=== PATIENT | male | born 1995 | race Caucasian/White ===

== ENCOUNTER 2022-12-28 05:31 | Emergency (ER) | payer OTHER, SELFPAY ==
[2022-12-28 05:53] LABS: Bacteria None Seen /HPF (None Seen); Bilirubin Negative (Negative); Blood Negative (Negative); Epithelial Cells Rare /HPF (None Seen); Glucose, Urine Negative (Negative); Hyaline Casts NONE SEEN /LPF (0-2); Ketones Negative (Negative); Leukocyte Esterase Negative (Negative); Nitrite Negative (Negative); Ph 5.5 (4.6-8.0); Protein,Urine Dip Negative (Negative); RBC 0-2 /HPF (0-5); Specific Gravity 1.025 (1.005-1.030)
[2022-12-28 05:54] LABS: ADD URINE CULTURE? NO (NO); Appearance Clear (Clear)
--- NOTE | 2022-12-28 06:03 | ERPHSYRPT ---
- History of Present Illness Source: patient Exam Limitations: no limitations Patient Subjective Stated Complaint: pt states he woke up with pain in his rt flank. states he has had kidney stones before and th is feels similar Triage Nursing Assessment: pt alert and oriented, answers questions approp. pt ambulates into room with steady gait noted. respirations nonlabored. skin warm and dry. abd soft and nontender. bowel sounds present x4. Timing/Duration: hour(s) (2) Activites at Onset: sleep Quality: sharpness, stabbing Onset Location: right flank Pain Radiation: groin Severity of Pain-Max: severe Severity of Pain-Current: severe Modifying Factors: Improves With: vomiting. Worsens With: movement, palpation, urinating, walking Associated Symptoms: abdominal pain, nausea, vomiting, lower back pain, No fever, No chills, No diaphoresis, No dysuria Prior abdominal problems: none Sexual intercourse history: non-contributory Hx Tetanus, Diphtheria Vaccination/Date Given: Yes Hx Influenza Vaccination/Date Given: Yes Hx Pneumococcal Vaccination/Date Given: No Immunizations Up to Date: Yes <SAMMY TY - Last Filed: 12/28/22 06:59> <JUAN CISSE - Last Filed: 12/28/22 07:46> - History of Present Illness Time Seen by Provider: 12/28/22 05:58 Physician History: Pt c/o flank pain, right. Severe, radiates to groin. 10 in severity Previous episode of nephrolithiasis, last episode 2019, no intervention needed No fever. + N/V. No dysuria. Denies hematuria. (SAMMY TY) Allergies/Adverse Reactions: No Known Drug Allergies Allergy (Verified 12/28/22 05:53) Home Medications: No Home Meds [No Home Meds] 1 ea UD 03/16/16 [History] Travel Risk - International Travel Have you traveled outside of the country in past 3 weeks: No - Coronavirus Screening Are you exhibiting any of the following symptoms?: No Close contact with a COVID-19 positive Pt in past 14-21 Days: No - Vaccine Status Have you recieved a Covid-19 vaccination: Yes Before School Babysitter: [employer] - Vaccination Dates Date of 2cond Vaccination (if applicable): 06/24/21 <SAMMY TY - Last Filed: 12/28/22 06:59> - Past Medical History Pertinent Past Medical History: Yes Other Medical History: kidney stones - Past Surgical History Past Surgical History: Yes Other Surgical History: TOENAIL REMOVED. LEG CAST --CHILD- external fixators - Social History Smoking Status: Never smoker Exposure to second hand smoke: No Alcohol Use: None Drug Use: none Patient Lives Alone: Yes Significant Family History: no pertinent family hx <SAMMY TY - Last Filed: 12/28/22 06:59> - Review of Systems Constitutional: No Symptoms Eyes: No Symptoms Ears, Nose, & Throat: No Symptoms Respiratory: No Symptoms Cardiac: No Symptoms Abdominal/Gastrointestinal: Abdominal Pain, Nausea, Vomiting, No Diarrhea, No Constipation Genitourinary Symptoms: Flank Pain (right), No Dysuria, No Hematuria, No Testicle Pain, No Penile Discharge Musculoskeletal: No Symptoms Skin: No Symptoms Neurological: No Symptoms Psychological: No Symptoms Endocrine: No Symptoms Hematologic/Lymphatic: No Symptoms Immunological/Allergic: No Symptoms All Other Systems: Reviewed and Negative <SAMMY TY - Last Filed: 12/28/22 06:59> - Physical Exam General Appearance: mild distress, obese Eye Exam: eyes nml inspection Ears, Nose, Throat Exam: normal ENT inspection Neck Exam: normal inspection Respiratory Exam: normal breath sounds, lungs clear, airway intact, No chest tenderness, No respiratory distress Cardiovascular Exam: normal heart sounds, tachycardia, capillary refill <2 sec Gastrointestinal/Abdomen Exam: soft, normal bowel sounds, tenderness (RLQ), No distention, No mass, No guarding, No rebound Back Exam: normal inspection, CVA tenderness (right) Extremity Exam: normal inspection, normal range of motion, No swelling, No tenderness Neurologic Exam: alert, oriented x 3, cooperative Skin Exam: normal color, warm, dry SpO2 Interpretation: normal SpO2: 99 O2 Delivery: Room Air <SAMMY TY - Last Filed: 12/28/22 06:59> - Nursing Vital Signs Nursing Vital Signs: Initial Vital Signs Temperature 98.0 F 12/28/22 05:37 Pulse Rate 101 H 12/28/22 05:37 Respiratory Rate 18 12/28/22 05:37 Blood Pressure 167/90 12/28/22 05:37 O2 Sat by Pulse Oximetry 99 12/28/22 05:37 Pain Scale Pain Intensity 5 - Course Nursing assessment & vital signs reviewed: Yes EKG Interpreted by Me: RATE (100), Sinus Tach, NORMAL AXIS, NORMAL INTERVALS, NORMAL ST-T <SAMMY TY - Last Filed: 12/28/22 06:59> Ordered Tests: Active Orders 24 hr Category Date Time Status EKG-ER Only STAT Care 12/28/22 06:07 Active IV Insertion STAT Care 12/28/22 06:07 Active ABDOMEN AND PELVIS W/0 CONTRAS [CT] Stat Exams 12/28/22 06:08 Taken CBC W DIFF Stat Lab 12/28/22 06:26 Completed CMP Stat Lab 12/28/22 06:26 Completed LIPASE Stat Lab 12/28/22 06:26 Completed Lactic Acid Stat Lab 12/28/22 06:26 Completed TROPONIN Q4H Lab 12/28/22 06:26 Completed TROPONIN Q4H Lab 12/28/22 10:15 Ordered TROPONIN Q4H Lab 12/28/22 14:15 Ordered UA W/RFX UR CULTURE Stat Lab 12/28/22 05:44 Completed Medication Summary Discontinued Medications Generic Name Dose Route Start Last Admin Trade Name Freq PRN Reason Stop Dose Admin Ketorolac Tromethamine 30 mg 12/28/22 06:25 12/28/22 06:46 Ketorolac Tromethamine 30 Mg/Ml Inj IV 12/28/22 06:26 30 mg STAT ONE Administration Ketorolac Tromethamine Confirm 12/28/22 06:27 Ketorolac Tromethamine 30 Mg/Ml Inj Administered 12/28/22 06:28 Dose 30 mg .ROUTE .STK-MED ONE Lab/Rad Data: Laboratory Result Diagrams 12/28/22 06:26 12/28/22 06:26 Laboratory Results 12/28/22 12/28/22 12/28/22 Range/Units 06:26 06:26 06:26 WBC (4.0-10.5) x10^3/uL RBC (4.1-5.6) x10^6/uL Hgb (12.5-18.0) g/dL Hct (42-50) % MCV (78-100) fL MCH (26-32) pg MCHC (32-36) g/dL RDW (11.5-14.0) % Plt Count (150-450) x10^3/uL MPV (7.5-11.0) fL Gran % (36.0-66.0) % Immature Gran % (Auto) (0.00-0.4) % Nucleat RBC Rel Count (0.00-0.1) % Eos # (Auto) (0-0.5) x10^3/uL Immature Gran # (Auto) (0.00-0.03) x10^3u/L Absolute Lymphs (auto) (1.0-4.6) x10^3/uL Absolute Monos (auto) (0.0-1.3) x10^3/uL Absolute Nucleated RBC (0.00-0.01) x10^3u/L Lymphocytes % (24.0-44.0) % Monocytes % (0.0-12.0) % Eosinophils % (0.00-5.0) % Basophils % (0.0-0.4) % Absolute Granulocytes (1.4-6.9) x10^3/uL Basophils # (0-0.4) x10^3/uL Sodium 141 (137-145) mmol/L Potassium 4.4 (3.5-5.1) mmol/L Chloride 104 (98-107) mmol/L Carbon Dioxide 29 (22-30) mmol/L Anion Gap 12.2 (5-15) MEQ/L BUN 16 (9-20) mg/dL Creatinine 0.97 (0.66-1.25) mg/dL Estimated GFR > 60.0 ML/MIN Glucose 120 H (74-106) mg/dL Lactic Acid 1.7 (0.4-2.0) Calcium 9.1 (8.4-10.2) mg/dL Total Bilirubin 0.90 (0.2-1.3) mg/dL AST 33 (17-59) U/L ALT 35 (0-50) U/L Alkaline Phosphatase 84 (38-126) U/L Troponin I < 0.012 (0.000-0.034) ng/mL Serum Total Protein 7.9 (6.3-8.2) g/dL Albumin 4.5 (3.5-5.0) g/dL Lipase 69 (23-300) U/L Urine Color (Yellow) Urine Appearance (Clear) Urine pH (4.6-8.0) Ur Specific [place] (1.005-1.030) Urine Protein (Negative) Urine Glucose (UA) (Negative) mg/dL Urine Ketones (Negative) Urine Blood (Negative) Urine Nitrite (Negative) Urine Bilirubin (Negative) Urine Urobilinogen (0.2) mg/dL Ur Leukocyte Esterase (Negative) U Hyaline Cast (Auto) (0-2) /LPF Urine Microscopic RBC (0-5) /HPF Urine Microscopic WBC (0-5) /HPF Ur Epithelial Cells (None Seen) /HPF Urine Bacteria (None Seen) /HPF Urine Culture Reflexed (NO) 12/28/22 12/28/22 Range/Units 06:26 05:44 WBC 9.0 (4.0-10.5) x10^3/uL RBC 4.39 (4.1-5.6) x10^6/uL Hgb 15.7 (12.5-18.0) g/dL Hct 46.7 (42-50) % MCV 106.4 H (78-100) fL MCH 35.8 H (26-32) pg MCHC 33.6 (32-36) g/dL RDW 12.8 (11.5-14.0) % Plt Count 293 (150-450) x10^3/uL MPV 10.2 (7.5-11.0) fL Gran % 68.6 H (36.0-66.0) % Immature Gran % (Auto) 0.8 H (0.00-0.4) % Nucleat RBC Rel Count 0.0 (0.00-0.1) % Eos # (Auto) 0.14 (0-0.5) x10^3/uL Immature Gran # (Auto) 0.07 H (0.00-0.03) x10^3u/L Absolute Lymphs (auto) 1.83 (1.0-4.6) x10^3/uL Absolute Monos (auto) 0.74 (0.0-1.3) x10^3/uL Absolute Nucleated RBC 0.00 (0.00-0.01) x10^3u/L Lymphocytes % 20.4 L (24.0-44.0) % Monocytes % 8.2 (0.0-12.0) % Eosinophils % 1.6 (0.00-5.0) % Basophils % 0.4 (0.0-0.4) % Absolute Granulocytes 6.15 (1.4-6.9) x10^3/uL Basophils # 0.04 (0-0.4) x10^3/uL Sodium (137-145) mmol/L Potassium (3.5-5.1) mmol/L Chloride (98-107) mmol/L Carbon Dioxide (22-30) mmol/L Anion Gap (5-15) MEQ/L BUN (9-20) mg/dL Creatinine (0.66-1.25) mg/dL Estimated GFR ML/MIN Glucose (74-106) mg/dL Lactic Acid (0.4-2.0) Calcium (8.4-10.2) mg/dL Total Bilirubin (0.2-1.3) mg/dL AST (17-59) U/L ALT (0-50) U/L Alkaline Phosphatase (38-126) U/L Troponin I (0.000-0.034) ng/mL Serum Total Protein (6.3-8.2) g/dL Albumin (3.5-5.0) g/dL Lipase (23-300) U/L Urine Color Yellow (Yellow) Urine Appearance Clear (Clear) Urine pH 5.5 (4.6-8.0) Ur Specific [place] 1.025 (1.005-1.030) Urine Protein Negative (Negative) Urine Glucose (UA) Negative (Negative) mg/dL Urine Ketones Negative (Negative) Urine Blood Negative (Negative) Urine Nitrite Negative (Negative) Urine Bilirubin Negative (Negative) Urine Urobilinogen 1.0 A (0.2) mg/dL Ur Leukocyte Esterase Negative (Negative) U Hyaline Cast (Auto) NONE SEEN (0-2) /LPF Urine Microscopic RBC 0-2 (0-5) /HPF Urine Microscopic WBC 3-5 (0-5) /HPF Ur Epithelial Cells Rare (None Seen) /HPF Urine Bacteria None Seen (None Seen) /HPF Urine Culture Reflexed NO (NO) - Progress Progress: pain not gone completely <SAMMY TY - Last Filed: 12/28/22 06:59> - Progress Counseled pt/family regarding: lab results, diagnosis, need for follow-up, rad results <JUAN CISSE - Last Filed: 12/28/22 07:46> - Progress Progress Note: 12/28/22 06:50 Toradol given w/ some improvement. CBC, CMP, lactate, UA all neg. CT completed, but radiologist read pending. Will sign out to Dr. Cisse at this time. (SAMMY TY) 12/28/22 07:42 This patient has medical issue of moderate complexity. The level of complexity is determined by the review of the patient's past medical history, review of the patient's medication list and drug allergy list as well as history of present illness and physical findings on examination. The review of the work-up shows a mild right hydroureter nephrosis to the level of a punctate 1 to 2 mm calculus in the distal right ureter. (JUAN CISSE) Medical Desision Making - Diagnostic Testing Diagnostic test were ordered, analyzed, and reviewed by me: Yes Radiological Interpretation: Interpreted by me, Reviewed by me - Risk of complications The pt has a mod risk of morbidity or mortality based on: Need for prescription drug management <SAMMY TY - Last Filed: 12/28/22 06:59> - Independent Historian Additional History obtained from: Family - Discussion of managment Reviewed:: Test results Agreed on:: Treatment plan, need for follow-up - Diagnostic Testing Radiological Interpretation: Teleradiologist Report <JUNA CISSE - Last Filed: 12/28/22 07:46> - Departure Critical Care Time: No <SAMMY TY - Last Filed: 12/28/22 06:59> - Departure Departure Disposition: Home <JUAN CISSE - Last Filed: 12/28/22 07:46> - Departure Clinical Impression: Ureteral stone with hydronephrosis Condition: Good Additional Instructions: Drink plenty of fluids. Take ibuprofen 600 mg orally with food 3 times a day for the next 5 days. Take your medication as prescribed. Follow-up with your primary care physician or urologist for further evaluation management. Prescriptions: Hydrocodone/APAP 5/325 [[place] 5/325 mg] 1 each PO Q8H PRN PRN #6 tablet MDD 3 PRN Reason: Pain Tamsulosin HCl 0.4 mg [Flomax 0.4 MG] 0.4 mg PO DAILY #7 cap
[2022-12-28] MEDS ORDERED: TORAdol 30 mg Injection IV ONE (06:25)
[2022-12-28 06:27] LABS: Absolute Neutrophil Ct (ANC) 6.15 x10^3/uL (1.4-6.9); BASOPHIL % 0.4 % (0.0-0.4); Basophil (Absolute #) 0.04 x10^3/uL (0-0.4); Eosinophil % 1.6 % (0.00-5.0); Eosinophil (Absolute #) 0.14 x10^3/uL (0-0.5); Hematocrit 46.7 % (42-50); Hemoglobin 15.7 g/dL (12.5-18.0); IMMATURE GRAN # 0.07 x10^3u/L (0.00-0.03); IMMATURE GRAN % 0.8 % (0.00-0.4); Lymphocyte (Absolute #) 1.83 x10^3/uL (1.0-4.6); Lymphocytes % 20.4 % (24.0-44.0); Mean Cell Volume 106.4 fL (78-100); Mean Corpuscular Hemoglobin 35.8 pg (26-32); Mean Corpuscular Hgb Concent. 33.6 g/dL (32-36); Mean Platelet Volume 10.2 fL (7.5-11.0); Monocyte (Absolute #) 0.74 x10^3/uL (0.0-1.3); Monocytes % 8.2 % (0.0-12.0); Neutrophil % 68.6 % (36.0-66.0); Platelet Count 293 x10^3/uL (150-450); Red Blood Count 4.39 x10^6/uL (4.1-5.6); Red Cell Distribution Width 12.8 % (11.5-14.0)
[2022-12-28] MEDS ORDERED: TORAdol 30 mg Injection ONE (06:27)
[2022-12-28 06:40] LABS: ALBUMIN 4.5 g/dL (3.5-5.0); ALKALINE PHOSPHATASE 84 U/L (38-126); ANION GAP 12.2 MEQ/L (5-15); BLOOD UREA NITROGEN 16 mg/dL (9-20); CHLORIDE 104 mmol/L (98-107); Calcium 9.1 mg/dL (8.4-10.2); Carbon Dioxide 29 mmol/L (22-30); Creatinine 1 0.97 mg/dL (0.66-1.25); EST GLOMERULAR FILTRATION RATE > 60.0 ML/MIN; Glucose 120 mg/dL (74-106); LIPASE 69 U/L (23-300); Potassium 4.4 mmol/L (3.5-5.1); SGOT/AST 33 U/L (17-59); SGPT/ALT 35 U/L (0-50); SODIUM 141 mmol/L (137-145); Total Protein 7.9 g/dL (6.3-8.2)
[2022-12-28] MEDS ORDERED: Flomax 0.4 MG PO ONE (07:47)
[2022-12-28] MEDS ORDERED: Flomax 0.4 MG ONE (07:51)
[2022-12-28 07:57] VITALS: BP 155/110; PULSE 75; O2SAT 98
--- NOTE | 2022-12-28 08:47 | XRAY ---
Indication: Right flank pain. Multiple contiguous axial images obtained through the abdomen and pelvis without contrast using renal stone protocol. Comparison: None Lung bases clear. Heart not enlarged. Distal right ureter just proximal to UVJ demonstrates punctate calculus, best seen coronal image 132, with very minimal hydronephrosis. No other renal calculus. Noncontrasted stomach and bowel loops appear nonobstructed with normal appendix. Diffuse fatty liver. No free fluid/air. Remaining liver, gallbladder, pancreas, spleen, adrenal glands, kidneys, ureters, bladder, and aorta are unremarkable for noncontrast exam. Osseous structures intact. No ventral or inguinal hernias. Impression: 1. Distal right ureter punctate calculus with very minimal hydronephrosis. 2. Incidental fatty liver. Comment: Preliminary interpretation made by [facility]. No critical discrepancy.
== END 2022-12-28 08:08 | disposition home or self-care (01) ==
LOC: ED 05:31
DX: N13.2 Hydronephrosis with renal and ureteral calculous obstruction (principal); R10.9 Unspecified abdominal pain; Z79.891 Long term (current) use of opiate analgesic
CPT/HCPCS: 36000; 36415; 74176; 80053; 81001; 83605; 83690; 84484; 85025; 93005; 96374; 99284; J1885; A9270-GY

== ENCOUNTER 2025-04-20 04:17 | Emergency (ER) | payer OTHER ==
[2025-04-20 04:38] VITALS: RESP 18; TEMP 96.9
[2025-04-20] MEDS ORDERED: Zofran 4 MG/2 ML VIAL ONE (05:01)
--- NOTE | 2025-04-20 05:02 | ERPHSYRPT ---
- History of Present Illness Time Seen by Provider: 04/20/25 04:30 Historian: patient, family Exam Limitations: no limitations Patient Subjective Stated Complaint: pt reports right lower flank pain that radiates around to the right lower abdomen starting one hour ago. pt also reports nausea and one episode of vomiting, pt reports history of kidney stones. states he had a recent dorsal slit procedure that he is taking keflex for currently Triage Nursing Assessment: pt is aox3, pupils perrl, afebrile, resps easy and non labored, cap refill < 3 seconds, radial pulses strong and equal, pt abd soft non tender, bowel sounds present and normoactive x4, pt skin pink warm dry. Physician History: This is a morbidly obese white male patient who arrives by private vehicle with the complaint of sudden onset of right flank pain that radiates into his right lower quadrant and right groin area. This occurred approximately 1 hour prior to arrival and woke him up out of his sleep. It is sharp. Initially the pain was very intense and it is slowly improved down to a 2-4 out of 10 level. He has intermittent nausea and had 1 episode of vomiting. Patient has a history of ureterolithiasis. He underwent a urologic procedure relatively recently and is currently on Keflex antibiotics postoperatively. Patient denies chest pain and he denies shortness of breath. Timing/Duration: today Quality: sharpness Abdominal Pain Onset Location: flank (Right side) Pain Radiation: RLQ Severity of Pain-Max: moderate Severity of Pain-Current: mild Modifying Factors: Improves With: vomiting (1 episode) Associated Symptoms: nausea (Intermittent) Previous symptoms: same symptoms as today, no recent treatment Allergies/Adverse Reactions: No Known Drug Allergies Allergy (Verified 04/20/25 05:13) Home Medications: No Home Meds [No Home Meds] 1 ea UD 03/16/16 [History] Hx Tetanus, Diphtheria Vaccination/Date Given: Yes Hx Influenza Vaccination/Date Given: Yes Hx Pneumococcal Vaccination/Date Given: No Immunizations Up to Date: No Travel Risk - International Travel Have you traveled outside of the country in past 3 weeks: No - Emerging Infectious Disease Are you exhibiting symptoms associated with any current EIDs: No - Review of Systems Constitutional: No Symptoms Eyes: No Symptoms Ears, Nose, & Throat: No Symptoms Respiratory: No Symptoms Cardiac: No Symptoms Genitourinary Symptoms: Flank Pain (Right side) Musculoskeletal: No Symptoms Skin: No Symptoms Neurological: No Symptoms Psychological: No Symptoms Endocrine: No Symptoms Hematologic/Lymphatic: No Symptoms Immunological/Allergic: No Symptoms All Other Systems: Reviewed and Negative - Past Medical History Pertinent Past Medical History: Yes History: Other Other Medical History: kidney stones - Past Surgical History Past Surgical History: Yes Male Surgical History: Other Other Surgical History: TOENAIL REMOVED. LEG CAST --CHILD- external fixators. dorsal slit procedure 03/23/25 Significant Family History: no pertinent family hx - Social History Smoking Status: Never smoker Exposure to second hand smoke: No Drug Use: none - Social Determinants of Health Will the patient participate in the screening: Yes Do you worry about a steady place to live?: No Do you have any problems with any of the following?: No known problems In the past 12 months,have you had to go without utilities?: No Transportation Issues: No Has anyone in your support network made you feel unsafe?: No Have you or anyone in your house had to go w/o enough food: No - Nursing Vital Signs Nursing Vital Signs: Initial Vital Signs Temperature 96.9 F 04/20/25 04:17 Pulse Rate 86 04/20/25 04:17 Respiratory Rate 18 04/20/25 04:17 Blood Pressure 161/100 04/20/25 04:17 O2 Sat by Pulse Oximetry 100 04/20/25 04:17 Pain Scale Pain Intensity 3 - Physical Exam General Appearance: no apparent distress, alert, obese Eye Exam: PERRL/EOMI, eyes nml inspection Ears, Nose, Throat Exam: normal ENT inspection, moist mucous membranes Neck Exam: normal inspection, non-tender, supple, full range of motion Respiratory Exam: normal breath sounds, lungs clear, No chest tenderness, No respiratory distress Cardiovascular Exam: regular rate/rhythm, normal heart sounds, normal peripheral pulses Gastrointestinal/Abdomen Exam: soft, normal bowel sounds, tenderness (Mild right groin/inguinal discomfort), No guarding, No rebound Rectal Exam: not done Back Exam: normal inspection, normal range of motion, CVA tenderness (Right side), No vertebral tenderness Extremity Exam: normal inspection, normal range of motion, pelvis stable Neurologic Exam: alert, oriented x 3, cooperative, painter and body work II-XII nml as tested, nml cerebellar function, nml station & gait, sensation nml Skin Exam: normal color, warm, dry Lymphatic Exam: No adenopathy SpO2 Interpretation: normal SpO2: 100 O2 Delivery: Room Air - Course Nursing assessment & vital signs reviewed: Yes Ordered Tests: Active Orders 24 hr Category Date Time Status IV Insertion STAT Care 04/20/25 04:57 Active ABDOMEN AND PELVIS W/0 CONTRAS [CT] Stat Exams 04/20/25 04:58 Completed AMYLASE Stat Lab 04/20/25 04:55 Completed CBC W DIFF Stat Lab 04/20/25 04:55 Completed CMP Stat Lab 04/20/25 04:55 Completed LIPASE Stat Lab 04/20/25 04:55 Completed UA W/RFX UR CULTURE Stat Lab 04/20/25 04:38 Completed Medication Summary Discontinued Medications Generic Name Dose Route Start Last Admin Trade Name Freq PRN Reason Stop Dose Admin Sodium Chloride 1,000 mls @ 999 mls/hr 04/20/25 04:57 04/20/25 06:04 Sodium Chloride 0.9% 1000 Ml IV 04/20/25 05:57 Infused .Q1H1M STA Infusion Sodium Chloride Confirm 04/20/25 05:02 Sodium Chloride 0.9% 1000 Ml Administered 04/20/25 05:03 Dose 1,000 mls @ ud .ROUTE .STK-MED ONE Ondansetron HCl 4 mg 04/20/25 04:57 04/20/25 05:05 Ondansetron Hcl 4 Mg/2 Ml Vial IV 04/20/25 04:58 4 mg STAT ONE Administration Ondansetron HCl Confirm 04/20/25 05:01 Ondansetron Hcl 4 Mg/2 Ml Vial Administered 04/20/25 05:02 Dose 4 mg .ROUTE .STK-MED ONE Lab/Rad Data: Laboratory Result Diagrams 04/20/25 04:55 04/20/25 04:55 Laboratory Results 04/20/25 04/20/25 04/20/25 Range/Units 04:55 04:55 04:38 WBC 7.9 (4.23-9.07) x10^3/uL RBC 5.24 (4.63-6.08) x10^6/uL Hgb 17.1 (13.7-17.5) g/dL Hct 50.1 (40.1-51.0) % MCV 95.6 H (79.0-92.2) fL MCH 32.6 H (25.7-32.2) pg MCHC 34.1 (32.3-36.5) g/dL RDW 12.7 (11.6-14.4) % Plt Count 246 (163-337) x10^3/uL MPV 11.0 (9.4-12.4) fL Gran % 58.9 (34.0-67.9) % Immature Gran % (Auto) 0.8 H (0.001-0.429) % Nucleat RBC Rel Count 0.0 (0.00-0.2) % Eos # (Auto) 0.12 (0.04-0.54) x10^3/uL Immature Gran # (Auto) 0.06 H (0.001-0.031) x10^3u/L Absolute Lymphs (auto) 2.34 (1.32-3.57) x10^3/uL Absolute Monos (auto) 0.70 (0.30-0.82) x10^3/uL Absolute Nucleated RBC 0.00 (0.00-0.012) x10^3u/L Lymphocytes % 29.5 (21.8-53.1) % Monocytes % 8.8 (5.3-12.2) % Eosinophils % 1.5 (0.8-7.0) % Basophils % 0.5 (0.2-1.2) % Absolute Granulocytes 4.68 (1.78-5.38) x10^3/uL Basophils # 0.04 (0.01-0.08) x10^3/uL Sodium 139 (135-145) mmol/L Potassium 4.0 (3.5-5.1) mmol/L Chloride 103 (98-107) mmol/L Carbon Dioxide 26 (22-30) mmol/L Anion Gap 13.4 (5-15) MEQ/L BUN 15 (9-20) mg/dL Creatinine 1.35 H (0.66-1.25) mg/dL Estimated GFR 72.9 ML/MIN Glucose 89 (74-106) mg/dL Calcium 9.7 (8.4-10.2) mg/dL Total Bilirubin 1.10 (0.2-1.3) mg/dL AST 25 (17-59) U/L ALT 35 (0-50) U/L Alkaline Phosphatase 78 (38-126) U/L Serum Total Protein 7.6 (6.3-8.2) g/dL Albumin 4.4 (3.5-5.0) g/dL Amylase 64 (30-110) U/L Lipase 72 (23-300) U/L Urine Color Yellow (Yellow) Urine Appearance Clear (Clear) Urine pH 5.0 (4.6-8.0) Ur Specific [place] 1.020 (1.005-1.030) Urine Protein Negative (Negative) Urine Glucose (UA) Negative (Negative) mg/dL Urine Ketones Negative (Negative) Urine Blood NHT (Negative) Urine Nitrite Negative (Negative) Urine Bilirubin Negative (Negative) Urine Urobilinogen 1.0 A (0.2) mg/dL Ur Leukocyte Esterase Negative (Negative) U Hyaline Cast (Auto) 3-5 A (0-2) /LPF Urine Microscopic RBC 3-5 (0-5) /HPF Urine Microscopic WBC 3-5 (0-5) /HPF Ur Epithelial Cells Rare (None Seen) /HPF Urine Bacteria None Seen (None Seen) /HPF Urine Culture Reflexed NO (NO) - Progress Progress: improved, pain not gone completely, re-examined Progress Note: 04/20/25 05:03 My medical decision making and assignment of moderate complexity to this patient's medical issue today is based on review of the patient's past medical history, review of the patient's medication list, reviewed patient drug allergy list, history present as and physical findings on examination. The workup in this patient includes placement of an intravenous line, infusion of normal saline solution, infusion of Zofran intravenously. I offered the patient Toradol and Dilaudid infusion. He wants to hold on those medications at this time. We ordered a CBC, CMP, amylase, lipase, urinalysis and CT scan of abdomen pelvis without contrast. Differential diagnosis includes but is not limited to pancreatitis, acute appendicitis, pyelonephritis, urinary tract infection, ureterolithiasis, colitis and diverticulitis 04/20/25 06:13 I interpreted the patient's laboratory data results. Based on laboratory data results, there are no acute, emergent medical issues. The CT scan of the abdomen pelvis was interpreted by the radiologist and I reviewed the impression. The impression states that there are no renal calcifications. The appendix is within normal limits. There is uncomplicated colonic diverticulosis. 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 Counseled pt/family regarding: lab results, diagnosis, need for follow-up, rad results Medical Desision Making - Diagnostic Testing Diagnostic test were ordered, analyzed, and reviewed by me: Yes Radiological Interpretation: Reviewed by me, Teleradiologist Report - Risk of complications Low Risk: Low risk of morbidity from additional dx testing or treatment - Departure Departure Disposition: Home Clinical Impression: Mesenteric panniculitis Condition: Stable Critical Care Time: No Referrals: LIONEL NIEVES DO [Primary Care Provider, [facility]] - Follow up/PCP as directed Additional Instructions: Drink plenty of clear liquids and advance your diet slowly to a regular diet. Use Tylenol and ibuprofen for pain control. Call your primary care provider today, 04/20/2025, to make arrangements for follow-up appointment for further evaluation management.
[2025-04-20 05:04] LABS: BASOPHIL % 0.5 % (0.2-1.2); Basophil (Absolute #) 0.04 x10^3/uL (0.01-0.08); Eosinophil (Absolute #) 0.12 x10^3/uL (0.04-0.54); Hematocrit 50.1 % (40.1-51.0); Hemoglobin 17.1 g/dL (13.7-17.5); IMMATURE GRAN # 0.06 x10^3u/L (0.001-0.031); IMMATURE GRAN % 0.8 % (0.001-0.429); Lymphocyte (Absolute #) 2.34 x10^3/uL (1.32-3.57); Mean Corpuscular Hemoglobin 32.6 pg (25.7-32.2); Mean Corpuscular Hgb Concent. 34.1 g/dL (32.3-36.5); Monocyte (Absolute #) 0.70 x10^3/uL (0.30-0.82); NUCLEATED RBC # 0.00 x10^3u/L (0.00-0.012); NUCLEATED RBC % 0.0 % (0.00-0.2); Platelet Count 246 x10^3/uL (163-337); Red Blood Count 5.24 x10^6/uL (4.63-6.08); White Blood Count 7.9 x10^3/uL (4.23-9.07)
[2025-04-20] MEDS: Zofran 4 MG/2 ML VIAL IV ONE (05:05)
[2025-04-20 05:08] LABS: Glucose, Urine Negative (Negative); Protein,Urine Dip Negative (Negative)
[2025-04-20 05:12] LABS: Calcium 9.7 mg/dL (8.4-10.2); Carbon Dioxide 26.0 mmol/L (22-30); Creatinine 1 1.35 mg/dL (0.66-1.25); EST GLOMERULAR FILTRATION RATE 72.9 ML/MIN; Glucose 89.0 mg/dL (74-106); Potassium 4.0 mmol/L (3.5-5.1); SGOT/AST 25.0 U/L (17-59); SGPT/ALT 35.0 U/L (0-50); Total Protein 7.6 g/dL (6.3-8.2)
--- NOTE | 2025-04-20 06:07 | XRAY ---
CLINICAL HISTORY: Right flank pain COMPARISON: 05:07:49 VENTILATED RIB FITTER TECHNIQUE: Contiguous axial images were obtained from the level of the diaphragm to the pubic symphysis without intravenous or oral contrast. Coronal and sagittal reconstructions were likewise performed and indicated to increase the sensitivity for detecting clinically relevant pathology. CT scan was performed according to ALARA (as low as reasonable achievable). FINDINGS: The visualized lung bases are clear. Evaluation of the abdominal and pelvic visceral organs is limited without intravenous contrast. The unenhanced liver, spleen, pancreas, and adrenal glands are grossly unremarkable. The gallbladder is present. The kidneys are normal in size and attenuation without obvious calcification. There is no hydronephrosis or perinephric stranding. The ureters are normal in caliber. The urinary bladder is normal in contour. Pelvic viscera are grossly unremarkable. No adenopathy or fluid collections are seen. No evidence of focal or diffuse bowel wall thickening or evidence of bowel obstruction is seen. The appendix is visualized in the right lower quadrant and appears within normal limits. The aorta is normal in caliber. No aggressive appearing osseous lesions are identified. Mild focal mesenteric haziness is noted involving supra and periumbilical region (at the mesenteric root) superimposed subcentimeter size lymph nodes-suggestive of mesenteric panniculitis. Few small uncomplicated colonic diverticulosis. IMPRESSION: Mesenteric panniculitis.-stable. Few small uncomplicated colonic diverticulosis.-stable. No other new interval abnormality since prior study. Electronically Signed by: Ben Hines MD. (04/20/2025 06:04:55 EDT)
[2025-04-20 06:08] VITALS: BP 130/70; PULSE 65
[2025-04-20 06:14] VITALS: O2SAT 100
== END 2025-04-20 06:30 | disposition home or self-care (01) ==
LOC: ED 04:17
DX: K65.4 Sclerosing mesenteritis (principal); R10.31 Right lower quadrant pain; R11.2 Nausea with vomiting, unspecified; Z79.899 Other long term (current) drug therapy